=== PATIENT | female | born 1940 | race Caucasian/White ===

== ENCOUNTER → 2017-01-17 | Outpatient (CLI) | payer MEDICARE ==
[~2017-01-17] MED LIST: ASPI81TA82 PO; BRIM.2%O OU; CALTTAB10 PO; CENTTAB9 PO; CRAN500C6 PO; EXFO10TA2 PO; FOLI1TAB PO; GLUC500C56 PO; HYDR-2768 PO; LATA.005%O OU; LIPI40TA PO; LOMO PO; METO100T PO; NAPR500 PO; PERC10TA27 PO; SULF500 PO; VITA10002 PO; curamin
[2017-01-17 13:19] LABS: BASOPHIL # 0.1 TH/MM3 (0-0.2); BASOPHIL % 0.8 % (0.0-2.0); EOSINOPHIL # 0.1 TH/MM3 (0-0.4); EOSINOPHIL % 0.9 % (0.0-4.0); HEMATOCRIT 36.8 % (35.0-46.0); HEMO FLAGS DIFF FINAL; LYMPH % 23.6 % (9.0-44.0); LYMPHOCYTE # 2.2 TH/MM3 (1.0-4.8); MEAN CELL VOLUME 92.8 FL (80.0-100.0); MEAN CORPUSCULAR HEMOGLOBIN 30.6 PG (27.0-34.0); MEAN CORPUSCULAR HGB CONC 32.9 % (32.0-36.0); MONO % 11.1 % (0.0-8.0); NEUT % 63.6 % (16.0-70.0); PLATELET COUNT 294 TH/MM3 (150-450); RED BLOOD COUNT 3.96 MIL/MM3 (4.00-5.30); RED CELL DISTRIBUTION WIDTH 14.2 % (11.6-17.2); WHITE BLOOD COUNT 9.4 TH/MM3 (4.0-11.0)
[2017-01-17 13:36] LABS: ANION GAP 9 MEQ/L (5-15); AST (GOT) 18 U/L (15-37); BICARBONATE 27.1 MEQ/L (21.0-32.0); BLOOD UREA NITROGEN 13 MG/DL (7-18); CHLORIDE 102 MEQ/L (98-107); GLOMERULAR FILTRATION RATE 85 ML/MIN (>89); GLUCOSE,FASTING 97 MG/DL (74-99); POTASSIUM 4.3 MEQ/L (3.5-5.1); SODIUM (NA) 138 MEQ/L (136-145)
[2017-01-17 13:41] LABS: ALKALINE PHOSPHATASE 85 U/L (45-117); ALT (GPT) 25 U/L (10-53); HDL CHOLESTEROL 73.6 MG/DL (40.0-60.0); LDL CHOLESTEROL 95 MG/DL (0-99); TOTAL BILIRUBIN ADULT 0.5 MG/DL (0.2-1.0)
== END ==
LOC: PLAB 08:45
PROVIDERS: ATTEND Family Medicine
DX: E78.2 Mixed hyperlipidemia (principal); I10 Essential (primary) hypertension; R73.01 Impaired fasting glucose
CPT/HCPCS: 36415; 80053; 80061; 85025

== ENCOUNTER → 2017-02-19 | Outpatient (CLI) | payer MEDICARE ==
[~2017-02-19] MED LIST changes: +ANAS1TAB PO; +ASPI81TA81 PO; +CALC1TAB34 PO; +CRAN1TAB5 PO; +DORZ1SOL EACH EYE; +FOLI400T PO; +GLUC15002 PO; +HYDR25TA5 PO; +LATA.005%O EACH EYE; +LOMO2.5T PO; +METO-309 PO; +MULT1TAB PO; +PRIL20TA2 PO
[2017-02-19 11:38] LABS: PROTHROMBIN TIME - PATIENT 10.7 SEC (9.8-11.6)
[2017-02-19 11:53] LABS: BICARBONATE 29.4 MEQ/L (21.0-32.0); POTASSIUM 4.2 MEQ/L (3.5-5.1)
--- NOTE | 2017-02-19 12:48 | RADRPT ---
EXAM DATE/TIME: 02/19/2017 11:58 [facility] COMPARISON: CHEST SINGLE AP, April 15, 2015, 19:25. INDICATIONS : Evaluate for communicable disease or pneumonia. MEDICAL HISTORY : None. SURGICAL HISTORY : None. ENCOUNTER: Initial ACUITY: 1 day PAIN SCORE: 0/10 LOCATION: Bilateral chest FINDINGS: The heart is normal in size. There are chronic appearing interstitial changes. The visualized bony st ructures demonstrate degenerative changes throughout the thoracic spine but are otherwise intact. CONCLUSION: 1. Chronic appearing interstitial changes throughout the pulmonary parenchyma. No acute abnormality i dentified. 2. Degenerative changes throughout the spine. 3. Stable exam compared to previous dated 04/15/15. Yonatan Ellis MD on February 19, 2017 at 12:45 Board Certified Radiologist. This report was verified electronically.
[2017-02-19 13:13] LABS: BLOOD, URINE NEG (NEG); GLUCOSE,URINE NEG (NEG); KETONE, URINE NEG (NEG); MUCUS URINE FEW /lpf (OCC); NITRITE,URINE NEG (NEG); URINE COLOR YELLOW (YELLW/STRAW)
[2017-02-19 13:17] LABS: COMMENT (UR) CULT NOT INDICATED; CULTURE IF INDICATED CULT NOT INDICATED
== END ==
LOC: CPRE 10:49
PROVIDERS: ATTEND Orthopaedic Surgery
DX: Z01.812 Encounter for preprocedural laboratory examination (principal); Z01.811 Encounter for preprocedural respiratory examination; M75.121 Complete rotator cuff tear or rupture of right shoulder, not specified as traumatic; M19.019 Primary osteoarthritis, unspecified shoulder
CPT/HCPCS: 36415; 71020; 80048; 81001; 85610

== ENCOUNTER → 2017-03-01 | Day surgery (SDC) | payer MEDICARE ==
--- NOTE | 2017-02-25 11:59 | MH ---
cc: HELEN RIGGINS SANDRA DATE OF ADMISSION: 03/01/2017 ADMITTING DIAGNOSES 1. Complete rotator cuff tear of the right shoulder. 2. Biceps tendinosis of the right shoulder. 3. Acromioclavicular arthrosis right shoulder. 4. Pain of the right shoulder. HISTORY The patient is a 76-year-old white female who has experienced pain of her right shoulder of almost two months' duration. She had become symptomatic with soreness about her shoulder area with limited mobility unrelated to injury or unusual activity. At that time the patient underwent initial evaluation with Dr. Juan Francisco Hi who had previously completed a lumpectomy of her right breast for a history of cancer. The patient was concern that her shoulder symptoms might be related to this condition but apparently no significant abnormality was identified. She did undergo an MRI scan of the right shoulder which identified a full-thickness tear of the distal supraspinatus tendon at its insertion with a gap measuring approximately 2.4 x 2.2 cm. Additional findings included severe infraspinatus and subscapularis tendinosis as well as severe proximal biceps tendinosis and moderately severe acromioclavicular joint arthrosis. Mild glenohumeral joint arthrosis was also identified. The patient had remained symptomatic with pain about her shoulder area that interfered with her daily routine and thus underwent orthopedic evaluation with the undersigned physician in January of this year at that time her clinical picture was felt to be consistent with a complete disruption of her rotator cuff for which treatment options were reviewed. The pros and cons of continuing with conservative management versus operative intervention that would involve an acromioplasty of her right shoulder and an attempted mini open rotator cuff repair was outlined in detail. Emphasis was made regarding the fact that the decision to proceed with surgery would be left entirely to the patient's discretion. The patient readily admitted that her symptoms were of such a degree that she was desirous of proceeding in this direction and in compliance with her wishes she is currently being admitted in order that the above be accomplished. She is right-hand dominant. PAST MEDICAL HISTORY Hospitalizations and surgeries have included - 1. Right total knee arthroplasty. 2. Hammertoe procedure of the left foot. 3. Colonoscopy for history of ulcerative colitis. 4. Partial hysterectomy. 5. Tonsillectomy. 6. Childbirth. 7. Excision of a lipoma of the right shoulder. 8. Bilateral blepharoplasty. The patient's medical illnesses include - 1. Ulcerative colitis. 2. Acid reflux. 3. Hypertension. 4. Elevated cholesterol. 5. Glaucoma 6. History of breast cancer. CURRENT MEDICATIONS 1. Azulfidine 500 mg 3 tablets twice daily. 2. Lomotil 2.5 mg twice daily p.r.n. 3. Folic acid 1 mg daily. 4. Prilosec 20 mg daily. 5. Exforge 10/320 daily. 6. Lopressor 50 mg twice a day. 7. Lipitor 40 mg daily. 8. Hydrochlorothiazide 25 mg p.r.n. 9. Cosopt PF 2% twice daily, 1 drop to each eye. 10. Xalatan 0.005% 1 drop to each eye at bedtime. 11. Anastrozole 1 mg daily. 12. Flonase p.r.n. Additional [id number] products taken include - 1. Centrum Silver. 2. Aspirin 81 mg tablet. 3. Cranberry. 4. Caltrate with D3. 5. Glucosamine. ALLERGIES The patient describes a drug allergy to - SULFA. SEPTRA which has caused a rash as well as a suspected anaphylactic type reaction. She also indicates a allergy to adhesive tape with skin sensitivity. REVIEW OF SYSTEMS HEENT: The patient wears glasses for reading. No headache, seizure or syncope. No chronic sinus congestion or epistaxis. Auditory acuity intact. No tinnitus. No bleeding gums or dysphagia. RESPIRATORY: No cough, shortness of breath, upper respiratory infection, pneumonia or tuberculosis. CARDIOVASCULAR: No angina, although she has undergone previous evaluation for chest pain that was thought to be secondary to internal shingles. She is medically managed for hypertension. GASTROINTESTINAL: Her appetite is good. Bowel movements regular. Positive history of ulcerative colitis status post multiple colonoscopies. GENITOURINARY: History of urinary tract infection. No kidney stones. MUSCULOSKELETAL: No fractures. PSYCHIATRIC: No psychiatric illness. Her remaining review of systems is unremarkable and noncontributory. FAMILY HISTORY 23 years. is 74 years of age, in good health. She has two sons and one daughter all indicated to be in good health. Family history is positive for hypertension, laryngeal cancer and stroke. 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 She completed a high school education. Denies active use of tobacco and ethanol. PHYSICAL EXAMINATION VITAL SIGNS: Height 5 feet 1-1/2 inches, weight 214 pounds. GENERAL: An alert, oriented and responsive 76-year-old white female who sits quietly upon the examination table with no obvious distress. HEAD, EYES, EARS, NOSE, AND THROAT: Pupils are equally round and reactive to light. Extraocular movements full. Sclerae clear. External nares clear. External auditory canals clear. Dental intact with dental caps in place. Mucous membranes pink and moist. Pharynx is clear. NECK: Supple. Active range of motion with no significant pain. Carotid pulse palpable bilaterally. Trachea midline. Thyroid without enlargement. LUNGS: Clear to auscultation and percussion. No CVA tenderness. No discomfort involving the dorsal lumbar spine. HEART: Subtle suggestion for murmur at the second intercostal space. Regular rhythm, otherwise appreciated. ABDOMEN: Soft, nontender. Bowel sounds present. PELVIC: Per primary care physician. EXTREMITIES: Right Shoulder: There is diffuse tenderness generalized about the shoulder area without palpable deformity. Hesitation and guarding is demonstrated with the patient's attempt to actively elevate her right hand above her head. Limited mobility with cross-arm positioning of the right hand onto the left shoulder, full internal rotation without significant pain. No sensation of crepitation or instability about the glenohumeral joint. Drop arm test positive. Topete sign minimally positive. Mild weakness of both internal and external rotation. Administrative Coordinator strength intact. Sensory intact. NEUROLOGIC: Cranial nerves II-XII grossly intact. IMPRESSIONS 1. Complete rotator cuff tear right shoulder. 2. Biceps tendinosis right shoulder. 3. Acromioclavicular arthrosis right shoulder. 4. Pain right shoulder PLAN Acromioplasty right shoulder with an attempted mini open rotator cuff repair. The nature of the planned surgical procedure, the potential complications and risks associated, the expectations of surgery and the consent form were thoroughly reviewed with the patient in the presence of her prior to admission to the hospital. Rene has indicated her full understanding regarding all of the above and given consent to proceed with treatment as outlined. Medical evaluation and clearance for surgery will be completed by her primary care physician, Dr. Jasmyne Felton. Helen Riggins MD NBS/SSB /11:32 AM /11:44 AM
[~2017-03-01] VITALS: Ht 154.9 cm; Wt 97.5 kg
[~2017-03-01] MED LIST changes: +*morphine SULFATE 8 MG/ML PERIprocedure ONLY ONE; +ACETAMINOPHEN 1000 MG/100 ML VIAL IV ONE; +ACETAMINOPHEN/HYDROcodone 325 MG/5 MG TAB PO PRN; -ASPI81TA82 PO; -BRIM.2%O OU; -CALTTAB10 PO; -CENTTAB9 PO; +CHLORHEXIDINE GLUCONATE 2 % 1 PACK (2 CLOTHS) TOPICAL PRN; -CRAN500C6 PO; +DO NOT ADM ANY ANTICOAGULANT DRUGS PRN; -FOLI1TAB PO; -GLUC500C56 PO; -HYDR-2768 PO; +INSULIN HUMAN REGULAR 1,000 UNITS/10 ML VIAL SQ PRN; +LACTATED RINGER'S 1000 ML INJ 1,000 ML IV ONE; +LACTATED RINGER'S 1000 ML IV PRN; -LATA.005%O OU; -LOMO PO; -METO100T PO; +METOPROLOL TARTRATE 25 MG TAB PO PRN; +MIDAZOLAM HCL 2 MG/2 ML VIAL ONE; +MORPHINE SULFATE 8 MG/ML INJ IM PRN; -NAPR500 PO; +ONDANSETRON HCL 4 MG/2 ML VIAL IV PUSH ONE; -PERC10TA27 PO; +POVIDONE IODINE 5% (ANTISEPSIS KIT) 4 APPLICATIONS EACH NARE PRN; +POVIDONE IODINE 7.5% SCRUB 118 ML BOTTLE TOPICAL SCH; +PROMETHAZINE INJ 25 MG/ML VIAL IM PRN; +PROPOFOL 200 MG/20 ML AMP IV ONE; +SODIUM CHLORID 0.9% 500 ML IV PRN; -VITA10002 PO; +ceFAZolin 2 GM PREMIX 50 ML IV SCH; +ceFAZolin INJ 1,000 MG VIAL ONE; -curamin; +fentaNYL CITRATE 250 MCG/5 ML AMP ONE
[2017-03-01 07:07] VITALS: BP 169/89; PULSE 72; RESP 16; TEMP 98.2; O2SAT 95
[2017-03-01 16:45] VITALS: BP 137/79; PULSE 70; RESP 18; TEMP 97.7; O2SAT 92
--- NOTE | 2017-03-03 13:00 | MP ---
cc: HELEN RIGGINS DATE OF SURGERY: 03/01/2017 PREOPERATIVE DIAGNOSIS: Complete rotator cuff tear of the right shoulder, biceps tendinosis, right shoulder, acromioclavicular arthrosis, right shoulder, pain right shoulder. POSTOPERATIVE DIAGNOSIS: Complete rotator cuff tear of the right shoulder, biceps tendinosis, right shoulder, acromioclavicular arthrosis, right shoulder, pain right shoulder. OPERATION: Acromioplasty, right shoulder with mini open rotator cuff repair. SURGEON: Helen Riggins M.D. ANESTHESIA: General endotracheal anesthesia FORMAT Following induction of satisfactory general anesthesia by endotracheal intubation as completed per the Department of Anesthesia the patient was positioned upon the operating table in a modified beach-chair configuration. A sheet roll was established along the vertebral border of the right scapula, the right shoulder and upper extremity proper were thereafter isolated with a U drape and prepped with Betadine solution being draped into a sterile field in the routine manner. Prior to initiation of the actual procedure the standard time-out protocol was completed, all parameters were appropriately addressed and confirmed by operating room personnel. A sharp skin incision was initiated along the superior aspect of the shoulder along the lateral margin of the acromion and developed to underlying subcutaneous tissue with hemostasis maintained by electrocautery. By deepening dissection the underlying deltoid musculature was exposed along its anterior raphe, the deltoid was divided in a medial to lateral orientation and developed into the subacromial space. Examination revealed a complete avulsion of the supraspinatus tendon consistent with a complete rotator cuff tear, hypertrophy of the anterior margin of the acromion was appreciated. An oblique osteotomy of the acromion was accomplished involving the anterior inferior segment, the undersurface of which was contoured with bone rasp. Visual and digital inspection confirmed an adequate decompression within the confines of the subacromial space. A more thorough evaluation of the rotator cuff tear was appreciated at that time. At the footprint level a superficial decortication of bone was accomplished with rongeurs and thereafter utilizing the Arthrex anchor bridge technique, two medial anchors were establish with fiber tapes being passed through the substance of the supraspinatus tendon and two additional lateral anchors placed as the anchor bridge was secured into place. Thereafter the shoulder was carried through a passive range of motion, stability of the rotator cuff was noted with no evidence of any residual impingement. The wound was thereafter copiously irrigated with saline solution. Hemostasis maintained by electrocautery. The deltoid was repaired with interrupted FiberWire suture. The remaining portion of the wound was closed in layers in the routine manner. Skin margins being reapproximated with a running subcuticular 3-0 Vicryl suture over which Steri-Strips were applied. Xeroform gauze and a bulky dry sterile dressing were placed. Anesthesia was discontinued and the patient thus transferred to a hospital stretcher and returned to the recovery room in satisfactory condition having tolerated her operative procedure well. Estimated blood loss was less than 20 cc. MD ALNRE Jeffries/ANA /10:39 AM /12:36 PM
== END | disposition home or self-care (01) ==
LOC: HSDC 06:01
PROVIDERS: ATTEND Orthopaedic Surgery
DX: M75.121 Complete rotator cuff tear or rupture of right shoulder, not specified as traumatic (principal); M75.21 Bicipital tendinitis, right shoulder; M19.011 Primary osteoarthritis, right shoulder; I10 Essential (primary) hypertension; K21.9 Gastro-esophageal reflux disease without esophagitis; K51.90 Ulcerative colitis, unspecified, without complications; E78.00 Pure hypercholesterolemia, unspecified; H40.9 Unspecified glaucoma; Z85.3 Personal history of malignant neoplasm of breast; Z79.899 Other long term (current) drug therapy
CPT/HCPCS: 01630; 23420; C1713; J0131; J0690; J2250; J2270; J2405; J3010; J7120

== ENCOUNTER → 2017-07-16 | Outpatient (CLI) | payer MEDICARE ==
[~2017-07-16] MED LIST changes: -*morphine SULFATE 8 MG/ML PERIprocedure ONLY ONE; -ACETAMINOPHEN 1000 MG/100 ML VIAL IV ONE; -ACETAMINOPHEN/HYDROcodone 325 MG/5 MG TAB PO PRN; -CHLORHEXIDINE GLUCONATE 2 % 1 PACK (2 CLOTHS) TOPICAL PRN; -DO NOT ADM ANY ANTICOAGULANT DRUGS PRN; -GLUC15002 PO; +GLUCOSAMINE 1501 CAP PO; -INSULIN HUMAN REGULAR 1,000 UNITS/10 ML VIAL SQ PRN; -LACTATED RINGER'S 1000 ML INJ 1,000 ML IV ONE; -LACTATED RINGER'S 1000 ML IV PRN; -METOPROLOL TARTRATE 25 MG TAB PO PRN; -MIDAZOLAM HCL 2 MG/2 ML VIAL ONE; -MORPHINE SULFATE 8 MG/ML INJ IM PRN; -ONDANSETRON HCL 4 MG/2 ML VIAL IV PUSH ONE; -POVIDONE IODINE 5% (ANTISEPSIS KIT) 4 APPLICATIONS EACH NARE PRN; -POVIDONE IODINE 7.5% SCRUB 118 ML BOTTLE TOPICAL SCH; -PROMETHAZINE INJ 25 MG/ML VIAL IM PRN; -PROPOFOL 200 MG/20 ML AMP IV ONE; -SODIUM CHLORID 0.9% 500 ML IV PRN; -ceFAZolin 2 GM PREMIX 50 ML IV SCH; -ceFAZolin INJ 1,000 MG VIAL ONE; -fentaNYL CITRATE 250 MCG/5 ML AMP ONE
[2017-07-16 13:44] LABS: AUTOMATED NEUTROPHIL # 5.1 TH/MM3 (1.8-7.7); BASOPHIL # 0.7 TH/MM3 (0-0.2); EOSINOPHIL # 0.2 TH/MM3 (0-0.4); HEMATOCRIT 35.7 % (35.0-46.0); LYMPH % 23.2 % (9.0-44.0); LYMPHOCYTE # 2.1 TH/MM3 (1.0-4.8); MEAN CELL VOLUME 95.3 FL (80.0-100.0); MEAN CORPUSCULAR HEMOGLOBIN 31.7 PG (27.0-34.0); MEAN CORPUSCULAR HGB CONC 33.3 % (32.0-36.0); MONO % 9.4 % (0.0-8.0); NEUT % 57.4 % (16.0-70.0); PLATELET COUNT 267 TH/MM3 (150-450); RED BLOOD COUNT 3.74 MIL/MM3 (4.00-5.30); RED CELL DISTRIBUTION WIDTH 14.8 % (11.6-17.2); WHITE BLOOD COUNT 8.9 TH/MM3 (4.0-11.0)
[2017-07-16 13:52] LABS: HEMO FLAGS DIFF FINAL
[2017-07-16 14:07] LABS: ANION GAP 8 MEQ/L (5-15); AST (GOT) 22 U/L (15-37); BICARBONATE 28.5 MEQ/L (21.0-32.0); BLOOD UREA NITROGEN 13 MG/DL (7-18); CHLORIDE 105 MEQ/L (98-107); GLOMERULAR FILTRATION RATE 82 ML/MIN (>89); GLUCOSE,FASTING 106 MG/DL (74-99); SODIUM (NA) 141 MEQ/L (136-145)
[2017-07-16 14:12] LABS: ALKALINE PHOSPHATASE 80 U/L (45-117); ALT (GPT) 21 U/L (10-53); HDL CHOLESTEROL 76.4 MG/DL (40.0-60.0); LDL CHOLESTEROL 70 MG/DL (0-99); TOTAL BILIRUBIN ADULT 0.5 MG/DL (0.2-1.0)
== END ==
LOC: PLAB 08:32
PROVIDERS: ATTEND Family Medicine
DX: I10 Essential (primary) hypertension (principal); E78.2 Mixed hyperlipidemia; K51.80 Other ulcerative colitis without complications
CPT/HCPCS: 36415; 80053; 80061; 85025

== ENCOUNTER → 2018-01-22 | Outpatient (CLI) | payer MEDICARE ==
[2018-01-22 14:22] LABS: BASOPHIL # 0.1 TH/MM3 (0-0.2); BASOPHIL % 0.7 % (0.0-2.0); EOSINOPHIL # 0.2 TH/MM3 (0-0.4); EOSINOPHIL % 2.1 % (0.0-4.0); HEMOGLOBIN 12.2 GM/DL (11.6-15.3); LYMPH % 26.2 % (9.0-44.0); LYMPHOCYTE # 2.1 TH/MM3 (1.0-4.8); MEAN CELL VOLUME 93.4 FL (80.0-100.0); MEAN CORPUSCULAR HEMOGLOBIN 30.7 PG (27.0-34.0); MEAN CORPUSCULAR HGB CONC 32.9 % (32.0-36.0); MEAN PLATELET VOLUME 8.9 FL (7.0-11.0); MONO % 10.1 % (0.0-8.0); MONOCYTE # 0.8 TH/MM3 (0-0.9); NEUT % 60.9 % (16.0-70.0); PLATELET COUNT 268 TH/MM3 (150-450); RED BLOOD COUNT 3.96 MIL/MM3 (4.00-5.30); RED CELL DISTRIBUTION WIDTH 14.6 % (11.6-17.2); WHITE BLOOD COUNT 8.1 TH/MM3 (4.0-11.0)
[2018-01-22 14:33] LABS: ALBUMIN 3.9 GM/DL (3.4-5.0); AST (GOT) 22 U/L (15-37); BICARBONATE 26.3 MEQ/L (21.0-32.0); BLOOD UREA NITROGEN 13 MG/DL (7-18); CALCIUM 9.6 MG/DL (8.5-10.1); CHLORIDE 104 MEQ/L (98-107); CREATININE 0.73 MG/DL (0.50-1.00); GLOMERULAR FILTRATION RATE 78 ML/MIN (>89); GLUCOSE,FASTING 113 MG/DL (74-99); SODIUM (NA) 140 MEQ/L (136-145)
[2018-01-22 14:35] LABS: CHOLESTEROL 161 MG/DL (120-200); TRIGLYCERIDES 73 MG/DL (42-150)
[2018-01-22 14:38] LABS: ALKALINE PHOSPHATASE 87 U/L (45-117); ALT (GPT) 29 U/L (10-53); CHOLESTEROL/ HDL RATIO 2.43 RATIO; LDL CHOLESTEROL 80 MG/DL (0-99); TOTAL BILIRUBIN ADULT 0.5 MG/DL (0.2-1.0); TOTAL PROTEIN 7.5 GM/DL (6.4-8.2)
== END ==
LOC: PLAB 09:30
PROVIDERS: ATTEND Nurse Practitioner Family
DX: E78.2 Mixed hyperlipidemia (principal); I10 Essential (primary) hypertension; R73.01 Impaired fasting glucose
CPT/HCPCS: 36415; 80053; 80061; 85025

== ENCOUNTER 2018-03-11 06:57 | Inpatient (IN) ==
--- NOTE | 2018-03-07 14:59 | MH ---
cc: Chris Riggins MD DATE OF ADMISSION: 03/11/2018 ADMITTING DIAGNOSIS: Displaced proximal right humerus fracture. HISTORY OF PRESENT ILLNESS: The patient is a 77-year-old white female who had the misfortune of falling in her garage at home on the 28 of February of this year, sustaining blunt trauma to her right shoulder area. The following day, she was seen in the emergency room of [facility] where x-ray examination identified a mildly displaced fracture of the proximal right humerus. The patient was placed into a shoulder immobilizer and prescribed pain medication and seen in followup disposition by the undersigned physician. At that time, her x-ray studies confirmed the presence of a surgical neck fracture in slight valgus orientation consistent with her recent history of trauma. It was initially elected to proceed with nonoperative intervention for which the patient was maintained in her shoulder immobilizer, which she was permitted to remove on a daily basis and continuing to take pain medication as needed. She returned to the office several days thereafter indicating she was absolutely miserable with regard to ongoing pain. Medication had not afforded any appreciable benefit. Her current x-ray studies confirmed a residual displacement about the fracture site for which various treatment options were reviewed including consideration for operative intervention that would involve open reduction internal fixation. The patient was more than eager to proceed in this direction and in compliance with her wishes, she has presently been scheduled for admission in order that the above be accomplished. She is right hand dominant. PAST MEDICAL HISTORY, HOSPITALIZATIONS AND SURGERIES: Have included tonsillectomy, lumpectomy of the right breast followed by radiation therapy and a course of chemotherapy, bilateral cataract excision, vaginal hysterectomy, rotator cuff repair of the right shoulder, total knee arthroplasty and colonoscopy. The patient's medical illnesses include hypertension, elevated cholesterol and ulcerative colitis. CURRENT MEDICATIONS: Amlodipine, anastrozole, atorvastatin, Boostrix, Cosopt, fluticasone and hydrocodone for pain management. ALLERGIES: SHE INDICATES A DRUG ALLERGY TO SEPTRA, which has caused a hive-like reaction and tightness of her throat. She also describes some REACTION TO ADHESIVE TAPE but is unable to be more specific in this regard. REVIEW OF SYSTEMS: She does wear glasses for reading purposes. Denies headache, seizure, or syncope. No sinus congestion or epistaxis. Auditory acuity intact. No tinnitus. No bleeding gums or dysphagia. Denies cough, shortness of breath, upper respiratory infection, pneumonia, or tuberculosis. No angina or heart disease. She is medically managed for hypertension. Appetite is good. Bowel movements are regular. No hepatitis, gallbladder disease, ulcers or hemorrhoids. She has a history of urinary tract infection in the past. No kidney stones, no previous fractures. No psychiatric illness. Remaining review of systems is unremarkable and noncontributory. FAMILY HISTORY: The patient has been for 24 years, this being a second marriage. Her is 75 years of age, in good health. She has 1 daughter and 2 sons indicated to be in good health. FAMILY HISTORY: Otherwise positive for hypertension, cancer of the throat and heart disease. SOCIAL HISTORY: The patient completed a high school education with limited college credits thereafter. She denies active use of tobacco and ethanol. She is a housewife. PHYSICAL EXAMINATION: VITAL SIGNS: Height 5 feet, 2 inches, weight 213 pounds. GENERAL: Reveals an alert, oriented and responsive 77-year-old white female who sits quietly upon the examination table with mild distress as related to pain generalized about her right shoulder area. HEAD, EARS, EYES, NOSE AND THROAT: Pupils are equal, round and reactive to light. Extraocular movements full. Sclerae are clear. External nares clear. External auditory canals clear. Dental intact. Mucous membranes pink and moist. Pharynx clear. NECK: Supple. Active range of motion. No appreciable pain. Carotid pulse is palpable bilaterally. Trachea midline. Thyroid without enlargement LUNGS: Clear to auscultation and percussion. BACK: No CVA tenderness. No discomfort throughout the dorsolumbar spine. HEART: Regular rate and rhythm. No murmur or gallop. ABDOMEN: Soft, nontender, bowel sounds present. PELVIC: Deferred. EXTREMITIES: Right Shoulder: Generalized tenderness about the shoulder area with restricted and guarded mobility about the shoulder joint in all ranges assessed. There is discomfort at the extremes of mobility. No sensation of crepitation or instability. Full range of motion about the elbow region. Intrinsic function of the hand is grossly intact. Sensory grossly intact. NEUROLOGIC: Cranial nerves 2-12 grossly intact. IMPRESSION: Mildly displaced surgical neck fracture of the proximal right humerus. PLAN: Open reduction, internal fixation displaced right humerus fracture. The nature of the planned surgical procedure, the potential complications and risks associated, the expectations of surgery and the consent form have been thoroughly reviewed with the patient in the presence of her prior to admission to the hospital. The patient has indicated her full understanding regarding all of the above and given consent to proceed with treatment as outlined. MD LANRE Jeffries/SB , 02:18 PM , 02:42 PM
[2018-03-11] MEDS ORDERED: Chlorhexidine Gluconate 2% 1 Pack (2 Cloths) TOPICAL SCH (08:00)
[2018-03-11] MEDS ORDERED: Metoprolol Tartrate 25 MG Tablet PO SCH (08:00)
[2018-03-11] MEDS ORDERED: Sodium Chlor 0.9% Inj 500 ML IV.SIG SCH (08:00)
[2018-03-11] MEDS ORDERED: Bupivacaine PF 0.5% Inj 30 ML Vial ONE (08:05)
[2018-03-11] MEDS ORDERED: ceFAZolin 2 GM Premix Inj 2 GM/50 ML PIGGYBACK IV.SIG ONE (08:43)
[2018-03-11] MEDS ORDERED: Phenylephrine/NS 1000 MCG/10ML Syringe IV.PUSH ONE (12:00)
[2018-03-11] MEDS ORDERED: Glycopyrrolate Inj 1 MG/5 ML Syringe IV.PUSH ONE (12:00)
[2018-03-11] MEDS ORDERED: Neostigmine Inj 5 MG/5 ML Syringe IV.PUSH ONE (12:00)
[2018-03-11] MEDS ORDERED: Lidocaine PF 1% Inj 5 ML Syringe INFILTRATN ONE (12:00)
[2018-03-11] MEDS ORDERED: Zolpidem Tartrate 5 MG Tablet PO PRN (12:09)
[2018-03-11] MEDS ORDERED: Naloxone Inj 0.4 MG/ML Vial IV.PUSH PRN (12:09)
[2018-03-11] MEDS ORDERED: Morphine Inj 4 MG/ML Vial IV.SIG ONE (12:09)
[2018-03-11] MEDS ORDERED: Bisacodyl 10 MG Supp RECTAL PRN (12:09)
[2018-03-11] MEDS ORDERED: Post-op Orders (for Pharmacy) OTHER STA (12:09)
[2018-03-11] MEDS ORDERED: Aluminum/Magnesium/Simethacone Susp 30 ML UDC PO PRN (12:09)
[2018-03-11] MEDS ORDERED: Morphine Inj 30 MG/30 ML PCA.VIAL PCA PRN (12:09)
[2018-03-11] MEDS ORDERED: Acetaminophen 325 MG Tablet PO PRN (12:09)
[2018-03-11] MEDS ORDERED: fentaNYL Citrate Inj 100 MCG/2 ML Ampul ONE (12:23)
[2018-03-11] MEDS ORDERED: Diphenoxylate/Atropine 2.5/0.025 MG Tablet PO PRN (12:25)
--- NOTE | 2018-03-11 13:23 | MP ---
cc: Chris Riggins MD DATE OF OPERATION: 03/11/2018 PREOPERATIVE DIAGNOSIS: Displaced proximal right humeral neck fracture. POSTOPERATIVE DIAGNOSIS: Displaced proximal right humeral neck fracture. PROCEDURE PERFORMED: Open reduction and internal fixation with [employer]s proximal humeral locking plate. SURGEON: Chris Riggins MD ANESTHESIA: General endotracheal. DESCRIPTION OF PROCEDURE: Following the induction of satisfactory general anesthesia via endotracheal intubation as completed per the Department of Anesthesia, the patient was positioned upon the operating table in a modified beach chair configuration. The right shoulder and upper extremity proper were isolated with a U-drape, thereafter prepped with Betadine solution and draped into a sterile field in the routine manner. Prior to initiation of the actual procedure, the standard timeout protocol was completed. All parameters were appropriately addressed and confirmed by operating room personnel. A standard anterior approach to the shoulder was initiated through a sharp skin incision and developed through underlying subcutaneous tissue with hemostasis maintained by electrocautery. By deepening dissection, the deltopectoral interval was developed with the cephalic vein being exposed and reflected laterally with a cuff of deltoid musculature. By deepening dissection, the underlying proximal humerus was exposed. Limited release of the pectoralis insertion facilitated distal exposure and digital release of the subdeltoid adhesions allowed for a more accurate visualization of the entire proximal humerus. There was significant reactive synovium with the fracture hematoma, all of which was evacuated and utilizing image intensifying control, the fracture site was monitored, an open reduction was completed and 2 smooth Steinmann pins were passed superiorly to inferiorly to maintain the fracture in reduced alignment. Intraoperative image intensifying review confirmed the satisfactory orientation and reduction of the fracture. A 3-hole Synthes proximal humerus fracture plate was thereafter positioned laterally and once again image intensifying review confirmed a satisfactory positioning of the plate with the proximal portion being distal to the insertion of the rotator cuff musculature to facilitate any avoidment of postoperative impingement. With the plate remaining in place, a single distal cancellous screw was inserted to maintain positioning of the plate and thereafter utilizing the proximal guide, additional locking screws were placed into the femoral head under direct visualization, facilitating maintained alignment. Two additional cancellous screws were placed distally to finalize fixation of the plate. Final intraoperative radiographs confirmed satisfactory alignment at the fracture site as well as positioning of the fixation plate. The disrupted rotator cuff, which had been identified preoperatively, was mobilized in as adequate a fashion that would facilitate and thereafter utilizing an Arthrex anchor, the margin of the cuff was secured to the area of the greater tuberosity. Final range of motion assessment noted good stability about the fracture site. The wound was copiously irrigated with saline solution. Hemostasis was maintained by electrocautery. The deltopectoral interval was reapproximated with a running 0 Vicryl suture. The remaining portion of the wound was closed in layers in the routine manner, skin margins being reapproximated with a running subcuticular 3-0 Vicryl suture over which Steri-Strips were applied. Xeroform gauze and a bulky dry sterile dressing were placed. The extremity were well supported in an arm sling. Anesthesia was discontinued. The patient was transferred to a hospital stretcher, and returned to the recovery room in satisfactory condition, having tolerated her operative procedure well. Estimated blood loss was approximately 150 mL as determined per Anesthesia. All implants were of the [employer] health care analyst. MD LANRE Jeffries/NINO , 12:36 PM , 12:45 PM
--- NOTE | 2018-03-11 14:57 | XR ---
EXAM DATE: 03/11/2018 2:30 PM EDT AGE/SEX: 77 years / Female INDICATIONS: Post ORIF CLINICAL DATA: This is the patient's initial encounter. Patient reports that signs and symptoms have been present for 1 day and indicates a pain score of Nonresponsive. MEDICAL/SURGICAL HISTORY: Non-responsive. Non-responsive. COMPARISON: No prior exams available for comparison. FINDINGS: Frontal and lateral intraoperative fluoroscopic views of the right humerus demonstrate lateral plate and screw fixation across the right proximal humerus fracture. CONCLUSION: Postoperative changes right proximal humerus. Electronically signed by: Bal Chavez MD 03/11/2018 2:55 PM EDT
[2018-03-11] MEDS ORDERED: Latanoprost 0.005% Opth Drops 2.5 ML Bottle EACH EYE SCH (18:00)
[2018-03-11] MEDS ORDERED: DORZOLAMIDE EACH EYE SCH (20:00)
[2018-03-11] MEDS ORDERED: TIMOLOL EACH EYE SCH (20:00)
[2018-03-11] MEDS ORDERED: [UNRECOGNIZED DRUG - OTHER] EACH EYE SCH (20:00)
[2018-03-11] MEDS: Aspirin 325 MG Tablet PO SCH (20:13)
[2018-03-11] MEDS: sulfaSALAzine 500 MG Tablet PO SCH (20:14)
[2018-03-11] MEDS: Senna/Docusate Sodium 8.6/50 MG Tablet PO SCH (20:14)
[2018-03-11] MEDS: Metoprolol Tartrate 50 MG Tablet PO SCH (20:14)
[2018-03-11] MEDS ORDERED: [UNRECOGNIZED DRUG - OTHER] PO SCH (21:00)
[2018-03-11 21:33] VITALS: RESP 18
--- NOTE | 2018-03-12 08:01 | MD ---
cc: Chris Riggins MD DATE OF DISCHARGE: ADMITTING DIAGNOSIS: Displaced proximal right humerus fracture. DISCHARGE DIAGNOSIS: Displaced proximal right humerus fracture. HISTORY OF PRESENT ILLNESS: This is a 77-year-old white female who had a misfortune of falling in her garage on 02/28/2018, sustaining blunt trauma to her right shoulder area. The following day, she was evaluated in the emergency room at [facility], where x-ray examination identified a mildly displaced fracture of the proximal right humerus. The patient was placed into a shoulder immobilizer and prescribed pain medication and seen in followup disposition by the undersigned physician. At that time, her x-ray studies confirm the presence of a surgical neck fracture in slight valgus orientation, consistent with the recent history of trauma. It was initially elected to proceed with nonoperative intervention for which the patient was maintained in her shoulder immobilizer, which was permitted to be removed on a daily basis for bathing purposes. She continued to utilize pain medication as needed. She returned to the office several days thereafter, indicating she was absolutely miserable with regard to ongoing pain. Medication had not afforded her any appreciable benefit and her current x-ray studies confirmed residual displacement about the fracture site, for which treatment options were reviewed including consideration for operative intervention that would involve open reduction and internal fixation. The patient was quite eager to proceed in this direction. In compliance with her wishes, she has been scheduled for admission in order that the above be accomplished. She is right hand dominant. Her physical examination at the time of admission revealed generalized tenderness about the right shoulder area with restricted and guarded mobility in all ranges assessed, with discomfort at the extremes of motion. There was no sensation of crepitation or instability. Full range of motion about the elbow joint. Intrinsic function of the right hand grossly intact. Sensory intact. HOSPITAL COURSE: Following admission to the hospital, on the indicated date, the patient was taken to the operating room, at which time she underwent open reduction and internal fixation accomplished with a [employer] proximal humerus fixation plate. The patient was noted to have tolerated her operative procedure well. Her postoperative course was stable thereafter. Postoperative x-rays confirmed satisfactory alignment about the fracture site as well as positioning of the fixation plate and screws. The patient was allowed progressive mobilization with limited range of motion activity about her right shoulder area. Followup examination of her surgical wound noted to be intact, healing favorably with no evidence of infection. The patient was subsequently discharged home on the first postoperative day, at which time she was noted to be making favorable progress with regard to her initial rehabilitation program. She declined offer for pain medication, indicating she had additional medication available at home that she would utilize on a p.r.n. basis. She was scheduled to be seen in office followup in approximately 1 week. CONDITION AT THE TIME OF DISCHARGE: Stable. PROGNOSIS: Favorable. MD LANRE Jeffries/KD , 07:45 AM , 07:51 AM
[2018-03-12] MEDS: Metoprolol Tartrate 50 MG Tablet PO SCH (08:33)
[2018-03-12] MEDS: Aspirin 325 MG Tablet PO SCH (08:33)
[2018-03-12] MEDS: Senna/Docusate Sodium 8.6/50 MG Tablet PO SCH (08:35)
[2018-03-12] MEDS: sulfaSALAzine 500 MG Tablet PO SCH (08:36)
[2018-03-12 08:40] VITALS: BP 96/53; PULSE 70; TEMP 98; O2SAT 97
[2018-03-12] MEDS ORDERED: PROT PO SCH (09:00)
[2018-03-12] MEDS ORDERED: CRANBERRY 800 MG PO SCH (09:00)
[2018-03-12] MEDS ORDERED: Multivitamin/Minerals Therapeutic Tablet PO SCH (09:00)
[2018-03-12] MEDS ORDERED: hydroCHLOROthiazide 25 MG Tablet PO SCH (09:00)
[2018-03-12] MEDS ORDERED: Folic Acid 1 MG Tablet PO SCH (09:00)
[2018-03-12] MEDS ORDERED: VALSARTAN PO SCH (09:00)
[2018-03-12] MEDS ORDERED: Anastrozole 1 MG Tablet PO SCH (09:00)
[2018-03-12] MEDS ORDERED: CA CARB D3 MAG OX COP MANG ZN PO SCH (09:00)
[2018-03-12] MEDS ORDERED: AMLODIPINE PO SCH (09:00)
--- NOTE | 2018-03-12 12:53 | P.DCO ---
- Physical Therapy Order: Evaluate and treat - Occupational Therapy Order: Evaluate and treat - Home Health Nursing Order: Wound care and dressing changes - Home Health Aide Order: To assist in: Bathing and personal care - Certification I have seen patient Rene Sutton on 03/12/18. My clinical findings support the need for the requested home health care services because: Limited ability to care for self, High risk of falls I certify that my clinical findings support that this patient is homebound because: Post-op weakness, Unsteady gait/balance, Unsafe to leave home unassisted
== END 2018-03-12 11:32 | disposition home health service (06) ==
LOC: HSDI 06:57 → EDSTATUS 09:00 → N06 17:58
PROVIDERS: ADMIT Orthopaedic Surgery; ATTEND Orthopaedic Surgery